=== PATIENT | male | born 1975 | race Hispanic/Latino ===

== ENCOUNTER 2019-10-30 22:15 | Emergency (ER) | payer BC ==
[2019-10-30] MEDS ORDERED: ACETAMINOPHEN 500 MG TAB ONE ×2 (23:26→23:27)
[2019-10-31] MEDS ORDERED: OSELTAMIVIR 75 MG CAP ONE (00:55)
[2019-10-31] MEDS ORDERED: IBUPROFEN 400 MG TAB ONE (00:55)
[2019-10-31] MEDS ORDERED: BENZONATATE 100 MG CAP PO ONE (00:55)
--- NOTE | 2019-10-31 00:57 | ER ---
Nurse's Notes [facility] Name: Manoj Lester JR. Age: 44 yrs Sex: Male : 1975 Arrival Date: 10/30/2019 Time: 22:16 Bed 7 Private MD: Diagnosis: Influenza due to unidentified influenza virus Presentation: 10/30 22:52 Presenting complaint: Patient states: C/O cough, chills and on and off fever that started Friday. Pt thinks he might have the flu. Transition of care: patient was not received from another setting of care. Onset of symptoms was October 29, 2018. Risk Assessment: Do you want to hurt yourself or someone else? Patient reports no desire to harm self or others. Initial Sepsis Screen: Does the patient meet any 2 criteria? No. Patient's initial sepsis screen is negative. Does the patient have a suspected source of infection? Yes: Productive cough/pneumonia. Care prior to arrival: None. 22:52 Method Of Arrival: Ambulatory 22:52 Acuity: ROSALBA 4 Historical: - Allergies: 22:56 No Known Allergies; - Home Meds: 22:56 metformin 500 mg Oral Tb24 1 tab once daily [Active]; - PMHx: 22:56 Diabetes - NIDDM; - PSHx: 22:56 None; - Immunization history:: Adult Immunizations not up to date. - Social history:: Smoking status: Patient/guardian denies using tobacco. - Ebola Screening: : Patient negative for fever greater than or equal to 101.5 degrees Fahrenheit, and additional compatible Ebola Virus Disease symptoms Patient denies exposure to infectious person. Screenin:05 Abuse screen: Denies threats or abuse. Denies injuries from another. Nutritional screening: No deficits noted. Tuberculosis screening: No symptoms or risk factors identified. Fall Risk None identified. Assessment: 23:06 General: Appears in no apparent distress. General: Appears Behavior is calm, wh cooperative, appropriate for age. Pain: Denies pain. Neuro: Level of Consciousness is awake, alert, obeys commands, Oriented to person, place, time, situation, Appropriate for age. Cardiovascular: Heart tones S1 S2. Respiratory: Airway is patent Respiratory effort is even, unlabored, Respiratory pattern is regular, symmetrical. Respiratory: Reports cough that is. GI: Abdomen is round non-distended. : No signs and/or symptoms were reported regarding the genitourinary system. EENT: Throat is pink. Derm: Skin is intact, is healthy with good turgor, Skin is pink, warm \T\ dry. normal. Musculoskeletal: Circulation, motion, and sensation intact. 10/31 00:02 Reassessment: Patient appears in no apparent distress at this time. No changes from previously documented assessment. Patient and/or family updated on plan of care and expected duration. Pain level reassessed. Patient is alert, oriented x 3, equal unlabored respirations, skin warm/dry/pink. 01:04 Reassessment: Patient appears in no apparent distress at this time. No changes from previously documented assessment. Patient and/or family updated on plan of care and expected duration. Pain level reassessed. Patient is alert, oriented x 3, equal unlabored respirations, skin warm/dry/pink. Patient states feeling better. Patient states symptoms have improved. Vital Signs: 10/30 22:57 BP 133 / 88; Pulse 89; Resp 20; Temp 100; Pulse Ox 98% ; Weight 111.13 kg; Height 5 ft. 6 in. (167.64 cm); 10/31 00:00 BP 125 / 66; Pulse 88; Resp 18; Temp 99.2; Pulse Ox 97% on R/A; 01:03 BP 111 / 64; Pulse 96; Resp 18; Temp 98.4; Pulse Ox 97% on R/A; 10/30 22:57 Body Mass Index 39.54 (111.13 kg, 167.64 cm) ED Course: 10/30 22:16 Patient arrived in ED. cf2 22:44 David Abenrathy PA is PHCP. cp 22:44 Alek Rueda MD is Attending Physician. cp 22:45 Yessica Yang is Primary Nurse. 22:53 Triage completed. 23:07 Arm band placed on right wrist. 23:07 Patient has correct armband on for positive identification. Bed in low position. Call light in reach. Side rails up X 1. Pulse ox on. NIBP on. 10/31 00:57 XRAY Chest Pa And Lat (2 Views) In Process Unspecified. EDMS 01:04 No provider procedures requiring assistance completed. Patient did not have IV access during this emergency room visit. Administered Medications: 10/30 23:26 Drug: Tylenol 1000 mg Route: PO; 10/31 01:02 Follow up: Response: No adverse reaction; Temperature is decreased 00:48 Drug: Tamiflu 75 mg Route: PO; 01:02 Follow up: Response: No adverse reaction 00:48 Drug: Ibuprofen 800 mg Route: PO; 01:02 Follow up: Response: No adverse reaction 00:48 Drug: Tessalon Perle 200 mg Route: PO; 01:02 Follow up: Response: No adverse reaction Outcome: 00:43 Discharge ordered by . louise 01:04 Discharged to home ambulatory, with family. 01:04 Condition: stable 01:04 Discharge instructions given to patient, family, Instructed on discharge instructions, follow up and referral plans. medication usage, POC Demonstrated understanding of instructions, follow-up care, medications, POC Prescriptions given X 4. 01:05 Patient left the ED. Signatures: Dispatcher [employer] EDMS David Abernathy PA PA cp Habalo, Winsy Abilio Mortensen cf2
--- NOTE | 2019-10-31 01:00 | EDPHYS ---
Physician Documentation [facility] Name: Manoj Lester JR. Age: 44 yrs Sex: Male : 1975 Arrival Date: 10/30/2019 Time: 22:16 Bed 7 Private MD: ED Physician Alek Rueda HPI: 10/30 23:20 This 44 yrs old Male presents to ER via Ambulatory with complaints of Fever, cp Cough, Flu Symptoms. 23:20 The patient reports fever, with an emergency department temperature of 100 degrees cp Fahrenheit. Onset: The symptoms/episode began/occurred yesterday. Associated signs and symptoms: Pertinent positives: cough, sore throat, body aches, Pertinent negatives: abdominal pain, diarrhea, vomiting. 23:20 Severity of symptoms: in the emergency department the symptoms are unchanged despite cp home interventions. Historical: - Allergies: 22:56 No Known Allergies; wh - Home Meds: 22:56 metformin 500 mg Oral Tb24 1 tab once daily [Active]; - PMHx: 22:56 Diabetes - NIDDM; [facility] PSHx: 22:56 None; - Immunization history:: Adult Immunizations not up to date. - Social history:: Smoking status: Patient/guardian denies using tobacco. - Ebola Screening: : Patient negative for fever greater than or equal to 101.5 degrees Fahrenheit, and additional compatible Ebola Virus Disease symptoms Patient denies exposure to infectious person. ROS: 23:30 Constitutional: Positive for body aches, Negative for fever, poor PO intake. cp 23:30 Eyes: Negative for injury, pain, redness, and discharge. cp 23:30 Cardiovascular: Positive for chest pain, with cough, of the right lower lateral chest, cp Negative for edema. 23:30 ENT: Positive for sore throat, Negative for drainage from ear(s), ear pain, difficulty cp swallowing, difficulty handling secretions. 23:30 Neck: Negative for pain with movement, pain at rest, stiffness. 23:30 Respiratory: Positive for cough, Negative for shortness of breath, wheezing. 23:30 Abdomen/GI: Negative for abdominal pain, vomiting, diarrhea, constipation. 23:30 Skin: Negative for rash. 23:30 Neuro: Negative for altered mental status, headache, weakness. 23:30 All other systems are negative. Exam: 23:35 Constitutional: The patient appears in no acute distress, alert, awake, cp non-diaphoretic, non-toxic, well developed, well nourished, obese. 23:35 Head/Face: Normocephalic, atraumatic. cp 23:35 Eyes: Periorbital structures: appear normal, Conjunctiva: normal, no exudate, no cp injection, Sclera: no appreciated abnormality, Lids and lashes: appear normal, bilaterally. 23:35 ENT: External ear(s): are unremarkable, Ear canal(s): are normal, clear, TM's: bulging, cp is not appreciated, bilaterally, erythema, is not appreciated, bilaterally, Nose: is normal, Mouth: Lips: moist, Oral mucosa: moist, Posterior pharynx: Airway: no evidence of obstruction, patent, Tonsils: no enlargement, no exudate, swelling, is not appreciated, erythema, that is mild, exudate, is not appreciated. 23:35 Neck: ROM/movement: Meningeal signs: are not present, nuchal rigidity, is not appreciated. 23:35 Chest/axilla: Inspection: normal, Palpation: is normal, no crepitus, no tenderness. 23:35 Cardiovascular: Rate: normal, Rhythm: regular, Edema: is not appreciated, JVD: is not appreciated. 23:35 Respiratory: the patient does not display signs of respiratory distress, Respirations: normal, no use of accessory muscles, no retractions, no splinting, no tachypnea, labored breathing, is not present, Breath sounds: are clear throughout, no decreased breath sounds, no stridor, no wheezing. 23:35 Abdomen/GI: Exam negative for discomfort, distension, guarding, Inspection: abdomen appears normal. 23:35 Back: ROM is normal. 23:35 Neuro: Orientation: to person, place \T\ time. Mentation: is normal, Motor: moves all fours, strength is normal, Gait: is steady, at a normal pace, without difficulty. Vital Signs: 22:57 BP 133 / 88; Pulse 89; Resp 20; Temp 100; Pulse Ox 98% ; Weight 111.13 kg; Height 5 ft. wh 6 in. (167.64 cm); 10/31 00:00 BP 125 / 66; Pulse 88; Resp 18; Temp 99.2; Pulse Ox 97% on R/A; 01:03 BP 111 / 64; Pulse 96; Resp 18; Temp 98.4; Pulse Ox 97% on R/A; 10/30 22:57 Body Mass Index 39.54 (111.13 kg, 167.64 cm) wh MDM: 10/30 22:48 Patient medically screened. 10/31 00:42 Data reviewed: vital signs, nurses notes, lab test result(s), radiologic studies, plain cp films. 00:42 Differential diagnosis: bronchitis, pneumonia meningitis, influenza, strep throat. Test cp interpretation: by ED physician or midlevel provider: plain radiologic studies, chest xray negative for infiltrates. 00:43 Counseling: I had a detailed discussion with the patient and/or guardian regarding: the cp historical points, exam findings, and any diagnostic results supporting the discharge/admit diagnosis, lab results, radiology results, to return to the emergency department if symptoms worsen or persist or if there are any questions or concerns that arise at home. 00:43 Response to treatment: the patient's symptoms have mildly improved after treatment, and cp as a result, I will discharge patient. 00:43 ED course: VSS. Influenza test negative but will treat patient with Tamiflu. Will cp discharge to home for continued monitoring. 10/30 22:46 Order name: Flu; Complete Time: 23:45 10/30 23:45 Interpretation: Reviewed. 10/30 22:46 Order name: Strep; Complete Time: 23:45 10/30 23:45 Interpretation: Reviewed. 10/30 23:43 Order name: Throat Culture EDAZ 10/30 23:46 Order name: XRAY Chest Pa And Lat (2 Views); Complete Time: 00:41 cp Administered Medications: 10/30 23:26 Drug: Tylenol 1000 mg Route: PO; 10/31 01:02 Follow up: Response: No adverse reaction; Temperature is decreased 00:48 Drug: Tamiflu 75 mg Route: PO; 01:02 Follow up: Response: No adverse reaction 00:48 Drug: Ibuprofen 800 mg Route: PO; 01:02 Follow up: Response: No adverse reaction 00:48 Drug: Tessalon Perle 200 mg Route: PO; 01:02 Follow up: Response: No adverse reaction Disposition: 07:03 Co-signature as Attending Physician, Alek Rueda MD Available for consultation at ps1 all times. Signing chart for administrative purposes. Not an endorsement of care. . Disposition: 10/31/19 00:43 Discharged to Home. Impression: Influenza due to unidentified influenza virus. - Condition is Stable. - Discharge Instructions: Influenza, Adult. - Prescriptions for Ibuprofen 800 mg Oral Tablet - take 1 tablet by ORAL route every 8 hours As needed take with food; 30 tablet. Zofran 4 mg Oral Tablet - take 1 tablet by ORAL route every 12 hours As needed; 20 tablet. Tessalon Perles 100 mg Oral Capsule - take 2 capsule by ORAL route every 8 hours As needed; 20 capsule. Tamiflu 75 mg Oral Capsule - take 1 tablet by ORAL route every 12 hours for 5 days; 10 tablet. - Medication Reconciliation Form, Thank You Letter, Antibiotic Education, Prescription Opioid Use, Work release form form. - Follow up: Private Physician; When: 2 - 3 days; Reason: Worsening of condition. - Problem is new. - Symptoms have improved. Signatures: Dispatcher [employer] EDAZ David Abernathy PA PA cp Habalo, Winsy wh Singer, Phillip, MD MD ps1 Corrections: (The following items were deleted from the chart) 01: 00:43 10/31/2019 00:43 Discharged to Home. Impression: Influenza due to unidentified wh influenza virus. Condition is Stable. Forms are Medication Reconciliation Form, Thank You Letter, Antibiotic Education, Prescription Opioid Use. Follow up: Private Physician; When: 2 - 3 days; Reason: Worsening of condition. Problem is new. Symptoms have improved. cp
[2019-10-31 01:13] VITALS: O2SAT 97
[2019-10-31 01:14] VITALS: BP 111/64; TEMP 98.4
--- NOTE | 2019-10-31 11:48 | RAD REPORT ---
EXAM DESCRIPTION: RAD - Chest Pa And Lat (2 Views) - 10/31/2019 12:22 am CLINICAL HISTORY: COUGH Chest pain. COMPARISON: CHEST PA AND LAT 2 VIEW dated 10/05/2014 FINDINGS: The lungs are clear. The heart is normal in size. No displaced fractures. IMPRESSION: No acute or concerning finding suspected.
== END 2019-10-31 01:05 | disposition home or self-care (01) ==
LOC: ER 22:15
DX: J11.1 Influenza due to unidentified influenza virus with other respiratory manifestations (principal); E11.9 Type 2 diabetes mellitus without complications
CPT/HCPCS: 71046; 87070; 87081; 87804; 99284

== ENCOUNTER 2022-06-26 05:53 | Emergency (ER) | payer BC, SELFPAY ==
--- OUTSIDE RECORDS SUMMARY | 2022-06-26 05:56 | XMS REPORT | Continuity of Care Document ---
:1975 Author Organization [facility] t Address [address] [place] [address] Care Team Providers Name Role Phone MONY MTZ Primary Care Physician Unavailable RENA OSBORNE Attending Clinician Unavailable Rena Vásquez Attending Clinician Problems Condition Condition Condition Status Onset Resolution Last Treating Co mments Source Name Details Category Date Date Treatment Clinician Date No known No known Disease Unive rs active active ity of problems problems [facility] Allergies, Adverse Reactions, Alerts Allergy Allergy Status Severity Reaction(s) Onset Inactive Treating Comm ents Source Name Type Date Date Clinician NO KNOWN Drug Active Univers ALLERGIE Class ity of S [facility] Social History Social Habit Start Date Stop Date Quantity Comments Source Exposure to 2022-05-20 2022-05-30 Unable to assess Univers ity of SARS-CoV-2 00:00:00 11:18:00 [facility] (event) Branch Sex Assigned [birth year] Universit y of 00:00:00 00:00:00 [facility] Smoking Status Start Date Stop Date Source Tobacco smoking consumption Univ ersity of [facility] unknown Branch Medications Ordered Filled Start Stop Current Ordering Indication Dosage Frequency Signature Comments Components Source Medication Medication Date Date Medication? Clinician (SIG) Name Name magnesium 300mL 300 mL, Uni vers citrate 05-30 Oral, ity of solution 16:30: 16:32 ONCE, 1 [place] 300 mL 00 :00 dose, On [facility] 05/30/22 Branch at 1130, LEIA No known 2022-0 No No known Unive rs medications 05-30 medication it y of 11:10: s [address] Vital Signs Vital Name Observation Time Observation Value Comments Source Systolic blood 2022-05-30 16:17:51 143 mm[Hg] Univer sity of pressure [facility] Diastolic blood 2022-05-30 16:17:51 89 mm[Hg] Unive rsity of pressure [facility] Heart rate 2022-05-30 16:17:51 [facility] Body temperature 2022-05-30 16:17:51 36.22 Monica [facility] 2022-05-30 16:17:51 16 /min [facility] Body height 2022-05-30 15:35:00 165.1 cm [facility] Body weight 2022-05-30 15:35:00 94.802 kg [facility] BMI 2022-05-30 15:35:00 34.78 kg/m2 [facility] Oxygen saturation in 2022-05-30 15:35:00 97 /min [facility] Arterial blood by [facility] Pulse oximetry Branch Procedures Procedure Date / Time Performed Performing Clinician [facility] e NOTICE OF PRIVACY 2022-05-30 15:29:24 Doctor Unassigned, No Univ [facility] PRACTICES Name [facility] CONSENT/REFUSAL FOR 2022-05-30 15:29:06 [facility]igned, [facility] AND Name Medical Branch TREATMENT Encounters Start End Encounter Admission Attending Care Care Encounter Source Date/Time Date/Time Type Type Clinicians Facility Department ID 2022-05-30 2022-05-30 Emergency X ANDREW OSBORNE ERT [id number] Univers 10:37:00 11:42:00 RENA ity of [facility] 2022-05-30 2022-05-30 Emergency ANDREW Osborne [id number] Univers 10:37:00 11:42:00 Rena S SPEEDY [id number] i ty [facility] [id number] [facility] [id number] Medi aylin 084 Branch Results This patient has no known results.
[2022-06-26 06:27] LABS: Urine Blood Negative (Negative); Urine Glucose 3+ (Negative); Urine Protein Negative (Negative); Urine Specific Gravity 1.015 (1.005-1.030)
[2022-06-26 06:36] LABS: Absolute Lymphocytes (CBC) 2.4 K/uL (0.7-4.9); Hematocrit 44.7 % (39.6-49.0); MCV 88.5 fL (80-100); MPV 7.6 fL (7.6-11.3); RBC Red Blood Cell Count 5.06 M/uL (4.33-5.43)
[2022-06-26] MEDS ORDERED: NA CHLORIDE 0.9% 1,000 ML ONE (06:38)
[2022-06-26] MEDS ORDERED: KETOROLAC 30 MG/ML INJ ONE (06:38)
[2022-06-26] MEDS ORDERED: NA CHLORIDE 0.9% 500 ML ONE (06:38)
[2022-06-26] MEDS ORDERED: ONDANSETRON 4 MG/2 ML VIAL ONE (06:38)
[2022-06-26 06:41] LABS: Urine RBC <5 /HPF (None Seen)
[2022-06-26 06:52] LABS: Albumin 3.9 g/dL (3.4-5.0); Bilirubin Total 0.5 mg/dL (0.2-1.0); Potassium 3.7 mmol/L (3.5-5.1); Protein, Total 8.5 g/dL (6.4-8.2)
--- NOTE | 2022-06-26 08:27 | RAD REPORT ---
EXAM DESCRIPTION: CTAbdomen Pelvis W Contrast - 06/26/2022 7:37 am CLINICAL HISTORY: Abdominal pain. Abdominal pain, acute, nonlocalized COMPARISON: Scrotum Testicles dated 06/26/2022 TECHNIQUE: Biphasic CT imaging of the abdomen and pelvis was performed with 100 ml non-ionic IV cont rast. All CT scans are performed using dose optimization technique as appropriate and may include automated exposure control or mA/KV adjustment according to patient size. FINDINGS: The lung bases are clear. The liver, spleen, pancreas, adrenal glands and left kidney are within normal limits. Mild right hydr onephrosis and hydroureter. No bowel obstruction, free air, free fluid or abscess. The appendix is normal. Lymphadenopathy is s een involving the retroperitoneum and within the pelvis. Para-aortic adenopathy, largest measures up to 22 mm. Pelvic adenopathy includes pelvic sidewall adenopathy on the left measuring up to 27 mm as well as several in the fat surrounding the rectum measuring up to 14 mm. Posterior right lateral rect al wall shows irregular asymmetric thickening measuring up to 14 mm. Prostate gland appears somewhat prominent and projects into the bladder base. Small fat containing right inguinal hernia. Moderate lumbar degenerative changes. IMPRESSION: Perirectal lymphadenopathy is present. Significant pelvic sidewall and retroperitoneal a denopathy also present. This is likely related to metastatic disease. Exact source is not definitive but suspicion is present for either a rectal mass along the right lateral wall or prostate neoplasia. Colonoscopy would be recommended for follow-up along with PSA correlation. Mild right hydronephrosis and hydroureter without obstructing calculus.
--- NOTE | 2022-06-26 09:29 | RAD REPORT ---
EXAM DESCRIPTION: US - Scrotum Testicles - 06/26/2022 7:15 am CLINICAL HISTORY: Abd pain Pelvic pain COMPARISON: No comparisons FINDINGS: The right testicle 4.4 x 3.4 x 2.9 cm. No intratesticular masses or evidence of testicular torsion. The left testicle 3.9 x 3.4 x 2.9 cm. No intratesticular masses or evidence of testicular torsion. Both epididymides are normal in size and appearance. Small bilateral hydroceles. IMPRESSION: No testicular mass or torsion findings. Small bilateral hydroceles.
--- NOTE | 2022-06-26 09:46 | EDPHYS ---
Physician Documentation [facility] Name: Manoj Lester JR. Age: 47 yrs Sex: Male : 1975 Arrival Date: 06/26/2022 Time: 05:56 Bed 4 Private MD: ED Physician Ej Colon HPI: 06/26 06:53 This 47 yrs old Male presents to ER via Ambulatory with complaints of anamaria Abdominal Pain, Testicular Swelling. 06:53 The patient presents with scrotal pain, of both sides. Onset: The symptoms/episode anamaria began/occurred 2 day(s) ago. Modifying factors: The symptoms are alleviated by remaining still, the symptoms are aggravated by nothing. Associated signs and symptoms: The patient has no apparent associated signs or symptoms. Severity of symptoms: At their worst the symptoms were mild, moderate, in the emergency department the symptoms are unchanged. The patient has experienced similar episodes in the past, a few times. Historical: - Allergies: 06:07 No Known Allergies; bb - Home Meds: 06:07 None [Active]; bb - PMHx: 06:07 Diabetes - NIDDM; bb - PSHx: 06:07 None; bb - Immunization history:: Client reports having NOT received the Covid vaccine. - Social history:: Smoking status: Patient denies any tobacco usage or history of. ROS: 06:54 Constitutional: Negative for fever, chills, and weight loss, Eyes: Negative for injury, anamaria pain, redness, and discharge, ENT: Negative for injury, pain, and discharge, Neck: Negative for injury, pain, and swelling, Cardiovascular: Negative for chest pain, palpitations, and edema, Respiratory: Negative for shortness of breath, cough, wheezing, and pleuritic chest pain, Back: Negative for injury and pain, MS/Extremity: Negative for injury and deformity, Skin: Negative for injury, rash, and discoloration, Neuro: Negative for headache, weakness, numbness, tingling, and seizure, Psych: Negative for depression, anxiety, suicide ideation, homicidal ideation, and hallucinations, Allergy/Immunology: Negative for hives, rash, and allergies, Endocrine: Negative for neck swelling, polydipsia, polyuria, polyphagia, and marked weight changes, Hematologic/Lymphatic: Negative for swollen nodes, abnormal bleeding, and unusual bruising. 06:54 Abdomen/GI: Positive for abdominal pain, abdominal cramps, of the right upper quadrant. 06:54 : Positive for testicular pain Exam: 06:54 Constitutional: This is a well developed, well nourished patient who is awake, alert, anamaria and in no acute distress. Head/Face: Normocephalic, atraumatic. Eyes: Pupils equal round and reactive to light, extra-ocular motions intact. Lids and lashes normal. Conjunctiva and sclera are non-icteric and not injected. Cornea within normal limits. Periorbital areas with no swelling, redness, or edema. ENT: Nares patent. No nasal discharge, no septal abnormalities noted. Tympanic membranes are normal and external auditory canals are clear. Oropharynx with no redness, swelling, or masses, exudates, or evidence of obstruction, uvula midline. Mucous membranes moist. Neck: Trachea midline, no thyromegaly or masses palpated, and no cervical lymphadenopathy. Supple, full range of motion without nuchal rigidity, or vertebral point tenderness. No Meningismus. Chest/axilla: Normal chest wall appearance and motion. Nontender with no deformity. No lesions are appreciated. Cardiovascular: Regular rate and rhythm with a normal S1 and S2. No gallops, murmurs, or rubs. Normal PMI, no JVD. No pulse deficits. Respiratory: Lungs have equal breath sounds bilaterally, clear to auscultation and percussion. No rales, rhonchi or wheezes noted. No increased work of breathing, no retractions or nasal flaring. Back: No spinal tenderness. No costovertebral tenderness. Full range of motion. Skin: Warm, dry with normal turgor. Normal color with no rashes, no lesions, and no evidence of cellulitis. MS/ Extremity: Pulses equal, no cyanosis. Neurovascular intact. Full, normal range of motion. Neuro: Awake and alert, GCS 15, oriented to person, place, time, and situation. Cranial nerves II-XII grossly intact. Motor strength 5/5 in all extremities. Sensory grossly intact. Cerebellar exam normal. Normal gait. Psych: Awake, alert, with orientation to person, place and time. Behavior, mood, and affect are within normal limits. 06:54 Abdomen/GI: Inspection: distension, Bowel sounds: normal, Palpation: mild abdominal tenderness, in the right upper quadrant and left lower quadrant, Liver: no appreciated palpable abnormalities, Hernia: not appreciated. 06:54 : CVA tenderness, is absent, Male external genitalia: normal, Bladder: is normal, Sexual behavior: the patient is not sexually active. Vital Signs: 06:02 BP 165 / 101; Pulse 73; Resp 18 S; Temp 97.8(O); Pulse Ox 100% on R/A; Weight 91.63 kg bb (R); Height 5 ft. 5 in. (165.10 cm) (R); Pain 10/10; 07:27 BP 163 / 86; Pulse 63; Resp 17; Pulse Ox 96% on R/A; tw2 10:00 BP 145 / 80; Pulse 70; Resp 17; Pulse Ox 97% ; Pain 1/10; jh6 06:02 Body Mass Index 33.61 (91.63 kg, 165.10 cm) bb MDM: 06:12 Patient medically screened. anamaria 06:59 Differential diagnosis: nonspecific abdominal pain, UTI, prostatitis, urethritis, anamaria cholecystitis, Cholelithiasis, diverticulitis, gastritis. Data reviewed: vital signs, nurses notes, lab test result(s), radiologic studies, CT scan, ultrasound. Data interpreted: ekg monitor: rate is 73 beats/min, rhythm is regular, Pulse oximetry: on room air is 100 %. Test interpretation: by ED physician or midlevel provider:. Counseling: I had a detailed discussion with the patient and/or guardian regarding: the historical points, exam findings, and any diagnostic results supporting the discharge/admit diagnosis, lab results, radiology results, the need for outpatient follow up, for definitive care, a rn gyn, an cad design engineer, a urologist. 07:33 Transition of care: Care assumed from David Sparrow MD. ms3 09:44 ED course: Discussed CT and ultrasound findings with patient in detail. Discussed with ms3 patient need to follow-up with Dr. Ying for colonoscopy and better visualization of rectal mass with possible biopsy in the next 1 to 2 days. Discussed patient also needs to follow-up with his primary care physician for PSA testing in the next 1 to 2 days. Patient understands and agrees with plan. All questions were answered. Return precautions discussed include worsening symptoms, or any other concerns.. 06/26 06:21 Order name: CBC with Diff; Complete Time: 07:06 mw2 06/26 06:21 Order name: CMP; Complete Time: 07:06 mw2 06/26 06:21 Order name: Lipase; Complete Time: 07:06 mw2 06/26 06:21 Order name: Urine Microscopic Only; Complete Time: 07:06 mw2 06/26 06:27 Order name: Urine Dipstick-Ancillary; Complete Time: 07:06 EDMS 06/26 07:13 Order name: CREATININE WHOLE BLOOD; Complete Time: 07:34 EDMS 06/26 06:21 Order name: IV Saline Lock; Complete Time: 06:22 mw2 06/26 06:24 Order name: US Scrotum Testicles; Complete Time: 09:43 [facility] 06/26 06:24 Order name: CT Abd/Pelvis - IV Contrast Only; Complete Time: 09:43 [facility] 06/26 06:21 Order name: Labs collected and sent; Complete Time: 06:22 mw2 06/26 06:21 Order name: Urine Dipstick-Ancillary (obtain specimen); Complete Time: 06:22 mw2 Administered Medications: 06:29 CANCELLED (Physician Discretion): Zofran (Ondansetron) 2 mg IVP once; over 2 minutes bb 06:35 Drug: Zofran (Ondansetron) 4 mg Route: IVP; Site: left antecubital; vc1 10:02 Follow up: Response: No adverse reaction 6 06:36 Drug: NS 0.9% 500 ml Route: IV; Rate: bolus; Site: left antecubital; vc1 06:36 Drug: NS 0.9% 1000 ml Route: IV; Rate: 125 ml/hr; Site: left antecubital; vc1 06:36 Drug: Ketorolac 30 mg Route: IVP; Site: left antecubital; vc1 10:02 Follow up: Response: Pain is decreased 6 Disposition Summary: 06/26/22 09:46 Discharge Ordered Location: Home ms3 Problem: new ms3 Symptoms: have improved ms3 Condition: Stable ms3 Diagnosis - Abdominal pain, unspecified ms3 - Hydrocele, unspecified ms3 - Type 2 diabetes mellitus with hyperglycemia ms3 - Perirrectal lymphadenopathy ms3 - Rectal mass ms3 - Prominent Prostate ms3 Followup: [facility] - With: - When: 2 - 3 days - Reason: Recheck today's complaints, Re-evaluation by your physician Followup: ms3 - With: Jefry Lopez MD - When: 1 - 2 days - Reason: Recheck today's complaints Followup: ms3 - With: Lane Albarran MD - When: 1 - 2 days - Reason: Recheck today's complaints, Re-evaluation by your physician Followup: ms3 - With: Private Physician - When: 1 - 2 days - Reason: Recheck today's complaints, Continuance of care, Re-evaluation by your physician Discharge Instructions: - Discharge Summary Sheet anamaria - Abdominal Pain, Adult anamaria - Testicular Self-Exam anamaria - Abdominal Pain, Adult, [id number] anamaria - Abdominal Pain During , [id number] anamaria - Lymphadenopathy ms3 Forms: - Medication Reconciliation Form ms3 - Thank You Letter ms3 - Antibiotic Education ms3 - Prescription Opioid Use ms3 Prescriptions: - Pepcid 20 mg Oral Tablet - take 1 tablet by ORAL route every 12 hours for 21 days; 42 tablet; Refills: 0, [facility] Product Selection Permitted - Zofran 4 mg Oral Tablet - take 1 tablet by ORAL route every 12 hours As needed; 20 tablet; Refills: 0, [facility] Product Selection Permitted - dicyclomine 20 mg Oral Tablet - take 1 tablet by ORAL route 4 times per day; 28 tablet; Refills: 0, Product [facility] Selection Permitted Signatures: Dispatcher [employer] David Blackmon MD MD cha Ballard, Brenda, RN RN Noris Flores mw2 Ej Colon DO DO ms3 Angelique Robin RN RN 1 Devorah Bran RN 6 Corrections: (The following items were deleted from the chart) 06:29 06:24 Zofran (Ondansetron) 2 mg IVP once; over 2 minutes ordered. anamaria mckenna 06:29 06:29 Zofran (Ondansetron) 2 mg IVP once; over 2 minutes ordered. bala mckenna
--- NOTE | 2022-06-26 09:46 | ER ---
Nurse's Notes [facility] Name: Manoj Lester JR. Age: 47 yrs Sex: Male : 1975 Arrival Date: 06/26/2022 Time: 05:56 Bed 4 Private MD: Diagnosis: Abdominal pain, unspecified;Hydrocele, unspecified;Type 2 diabetes mellitus with hyperglycemia;Perirrectal lymphadenopathy;Rectal mass;Prominent Prostate Presentation: 06/26 06:02 Chief complaint: Patient states: about 6 weeks ago pt went to ED for constipation was bb discharged then approx 2 or 3 weeks ago his testicles started swelling intermittently now they are continuously swollen and about a week ago he started having intermittent right flank pain but tonight it woke him from his sleep and won't go away also the last 3 weeks he is having trouble urinating. Coronavirus screen: At this time, the client does not indicate any symptoms associated with coronavirus-19. Ebola Screen: No symptoms or risks identified at this time. Initial Sepsis Screen: Does the patient meet any 2 criteria? No. Patient's initial sepsis screen is negative. Does the patient have a suspected source of infection? No. Patient's initial sepsis screen is negative. Risk Assessment: Do you want to hurt yourself or someone else? Patient reports no desire to harm self or others. Onset of symptoms is unknown. 06:02 Method Of Arrival: Ambulatory 06:02 Acuity: ROSALBA 3 bb Historical: - Allergies: 06:07 No Known Allergies; bb - Home Meds: 06:07 None [Active]; bb - PMHx: 06:07 Diabetes - NIDDM; bb - PSHx: 06:07 None; bb - Immunization history:: Client reports having NOT received the Covid vaccine. - Social history:: Smoking status: Patient denies any tobacco usage or history of. Screenin:27 Abuse screen: Denies threats or abuse. Nutritional screening: No deficits noted. bb Tuberculosis screening: No symptoms or risk factors identified. Fall Risk None identified. Assessment: 06:27 General: Appears in no apparent distress. uncomfortable, Behavior is cooperative, bb anxious. Pain: Complains of pain in abdomen and pelvis. Neuro: Level of Consciousness is awake, alert, obeys commands, Oriented to person, place, time, situation. Cardiovascular: Capillary refill < 3 seconds Patient's skin is warm and dry. Respiratory: Airway is patent Respiratory effort is even, unlabored, Respiratory pattern is regular. GI: Abdomen is non-distended, Bowel sounds present X 4 quads. Abdomen is tender to palpation X 4 quads. : Reports swelling to testicles. Derm: Skin is pink, warm \T\ dry. Musculoskeletal: Circulation, motion, and sensation intact. 07:15 Reassessment: Patient and/or family updated on plan of care and expected duration. Pain jh6 level reassessed. Patient is alert, oriented x 3, equal unlabored respirations, skin warm/dry/pink. Patient states feeling better. 07:15 Pain: Pain currently is 2 out of 10 on a pain scale. jh6 Vital Signs: 06:02 BP 165 / 101; Pulse 73; Resp 18 S; Temp 97.8(O); Pulse Ox 100% on R/A; Weight 91.63 kg bb (R); Height 5 ft. 5 in. (165.10 cm) (R); Pain 10/10; 07:27 BP 163 / 86; Pulse 63; Resp 17; Pulse Ox 96% on R/A; tw2 10:00 BP 145 / 80; Pulse 70; Resp 17; Pulse Ox 97% ; Pain 1/10; jh6 06:02 Body Mass Index 33.61 (91.63 kg, 165.10 cm) ED Course: 05:56 Patient arrived in ED. ja2 06:07 Triage completed. 06:07 Arm band placed on Patient placed in an exam room, on a stretcher, on pulse oximetry. 06:12 David Sparrow MD is Attending Physician. [facility] 06:15 Urine collected: clean catch specimen, clear. 06:20 Initial lab(s) drawn, by tx, sent to lab. Inserted saline lock: 20 gauge in left bb antecubital area, using aseptic technique. Blood collected. 06:27 Patient has correct armband on for positive identification. Pulse ox on. NIBP on. Warm bb blanket given. 07:17 Scrotum Testicles In Process Unspecified. EDMS 07:26 Bala Marinelli, JNENIFER is Primary Nurse. as6 07:33 Attending Physician role handed off by David Sparrow MD ms3 07:33 Ej Colon DO is Attending Physician. ms3 07:39 CT Abd/Pelvis - IV Contrast Only In Process Unspecified. EDMS 07:[address] moved back from CT. Patient moved back from radiology. as6 09:45 Kang Torres MD is Referral Physician. ms3 09:45 Lnae Albarran MD is Referral Physician. ms3 09:45 Referral Physician role handed off by Kang Torres MD ms3 09:45 Jefry Lopez MD is Referral Physician. ms3 10:01 IV discontinued, intact, bleeding controlled, No redness/swelling at site. Pressure jh6 dressing applied. 10:01 No provider procedures requiring assistance completed. jh6 Administered Medications: 06:29 CANCELLED (Physician Discretion): Zofran (Ondansetron) 2 mg IVP once; over 2 minutes bb 06:35 Drug: Zofran (Ondansetron) 4 mg Route: IVP; Site: left antecubital; vc1 10:02 Follow up: Response: No adverse reaction jh6 06:36 Drug: NS 0.9% 500 ml Route: IV; Rate: bolus; Site: left antecubital; vc1 06:36 Drug: NS 0.9% 1000 ml Route: IV; Rate: 125 ml/hr; Site: left antecubital; vc1 06:36 Drug: Ketorolac 30 mg Route: IVP; Site: left antecubital; vc1 10:02 Follow up: Response: Pain is decreased 6 Medication: 06:27 VIS not applicable for this client. bb Outcome: 09:46 Discharge ordered by . ms3 10:01 Discharged to home ambulatory. jh6 10:01 Condition: stable 10:01 Discharge instructions given to patient, Instructed on discharge instructions, follow up and referral plans. Demonstrated understanding of instructions, follow-up care, medications, Prescriptions given X 3. 10:02 Patient left the ED. [facility] Signatures: Dispatcher [employer] EDKY David Sparrow MD MD cha Ballard, Brenda, RN RN bb Davina Mchugh RN RN tw2 Ej Colon DO DO ms3 Noelle Lara ja2 Bala Marinelli RN RN as6 Devorah Bran RN RN 6 Angelique Robin RN RN vc1
[2022-06-26 10:16] VITALS: TEMP 97.8
[2022-06-26 10:28] VITALS: BP 145/80; O2SAT 97
== END 2022-06-26 10:02 | disposition home or self-care (01) ==
LOC: ER 05:53
DX: R10.11 Right upper quadrant pain (principal); N43.3 Hydrocele, unspecified; E11.9 Type 2 diabetes mellitus without complications; R59.0 Localized enlarged lymph nodes; N40.1 Benign prostatic hyperplasia with lower urinary tract symptoms; K62.89 Other specified diseases of anus and rectum
CPT/HCPCS: 36415; 74177; 76870; 80053; 81003; 81015; 82565; 83690; 85025; J2405; J7030; J7040; Q9967